=== PATIENT | female | born 1960 | race Caucasian/White ===

== ENCOUNTER 2017-10-16 13:56 | Inpatient (IN) | payer OTHER ==
[2017-10-16 15:23] VITALS: BMI 21.9
--- NOTE | 2017-10-16 19:37 | HP ---
CIWA Score - CIWA Score Nausea/Vomitin (DIARRHEA) Muscle Tremors: 3 Anxiety: 4-Mod. Anxious/Guarded Agitation: 3 Paroxysmal Sweats: No Perspiration Orientation: 0-Oriented Tacttile Disturbances: 3-Moderate Itch/Numb/Burn Auditory Disturbances: 0-None Visual Disturbances: 0-None Headache: 0-None Present CIWA-Ar Total Score: 16 Admission ROS BHS - HPI Chief Complaint: ALCOHOL WITHDRAWAL SX Allergies/Adverse Reactions: Allergies Allergy/AdvReac Type Severity Reaction Status Date / Time No Known Allergies Allergy Verified 10/16/17 17:22 History of Present Illness: 57 Y/O H/FEMALE WITH A HX OF ALCOHOL AND COCAINE DEPENDENCE SEEKING DETOX TX. PT HAS PREVIOUS HX OF TREATMENT EPISODES. Exam Limitations: No Limitations - Ebola screening Have you traveled outside of the country in the last 21 days: No (N) Have you had contact with anyone from an Ebola affected area: No Have you been sick,other than usual withdrawal symptoms: No Do you have a fever: No - Review of Systems Constitutional: Chills, Loss of Appetite, Night Sweats, Changes in sleep, Unexplained wgt Loss EENT: reports: Blurred Vision, Tearing, Nose Congestion, Dental Problems (NO TEETH) Respiratory: reports: No Symptoms reported Cardiac: reports: Lightheadedness GI: reports: Diarrhea, Nausea, Poor Appetite, Poor Fluid Intake, Vomiting : reports: No Symptoms Reported Musculoskeletal: reports: Back Pain (HX LBP), Joint Pain, Muscle Pain Integumentary: reports: No Symptoms Reported Neuro: reports: Headache, Tremors, Dizziness Endocrine: reports: No Symptoms Reported Hematology: reports: Anemia, Easy Bruising Psychiatric: reports: Orientated x3, Anxious, Depressed Other Systems: Reviewed and Negative Patient History - Patient Medical History Hx Anemia: Yes Hx Asthma: No Hx Chronic Obstructive Pulmonary Disease (COPD): No Hx Cancer: Yes (208-lymphoma s/p chemo -now in remision ) Hx Cardiac Disorders: No Hx Congestive Heart Failure: No Hx Hypertension: No Hx Hypercholesterolemia: No Hx Pacemaker: No HX Cerebrovascular Accident: No Hx Seizures: No Hx Dementia: No Hx Diabetes: No Hx Gastrointestinal Disorders: No Hx Liver Disease: No Hx Genitourinary Disorders: No Hx Sexually Transmitted Disorders: No Hx Renal Disease (ESRD): No Hx Thyroid Disease: No Hx Human Immunodeficiency Virus (HIV): Yes (ON GENVOYA BUT DID NOT BRING MED. RAN OUT.) Hx Hepatitis C: No Hx Depression: Yes Hx Suicide Attempt: No Hx Bipolar Disorder: No Hx Schizophrenia: No - Patient Surgical History Past Surgical History: Yes Hx Neurologic Surgery: No Hx Cataract Extraction: No Hx Cardiac Surgery: No Hx Lung Surgery: No Hx Breast Surgery: No Hx Breast Biopsy: No Hx Abdominal Surgery: No Hx Appendectomy: No Hx Cholecystectomy: No Hx Genitourinary Surgery: No Hx Section: No Hx Orthopedic Surgery: No Other Surgical History: Biopsy R side lymphoma chemo tx for 6 months in 2004 Anesthesia Reaction: No - PPD History Previous Implant?: Yes Documented Results: Positive w/o proof Implanted On Prior [facility] Admission?: No Results: CXR TBD PPD to be Administered?: No - Reproductive History Patient is a Female of Child Bearing Age (11 -55 yrs old): Yes Last Menstrual Period: 01/01/09 Patient : No - Smoking Cessation Smoking history: Current every day smoker Have you smoked in the past 12 months: Yes Aproximately how many cigarettes per day: 5 Cigars Per Day: 0 Hx Chewing Tobacco Use: No Initiated information on smoking cessation: Yes - Substance & Tx. History Hx Alcohol Use: Yes (VODKA/RUM) Hx Substance Use: Yes (CRACK) Substance Use Type: Alcohol, Cocaine Hx Substance Use Treatment: Yes (LAST TX [facility]) - Substances Abused Alcohol Route: Oral Frequency: Daily Amount used: 1 pint rum Age of first use: 14 Date of Last Use: 10/15/17 Crack Route: Smoking Frequency: Daily Amount used: $50 Age of first use: 22 Date of Last Use: 10/15/17 Family Disease History - Family Disease History Family Disease History: Diabetes: Father () Admission Physical Exam BHS - Vital Signs Vital Signs: Vital Signs - 24 hr 10/16/17 15:20 Temperature 99.2 F Pulse Rate 83 Respiratory 18 Rate Blood Pressure 103/67 - Physical General Appearance: Yes: Moderate Distress, Irritable, Anxious HEENTM: Yes: EOMI, Normocephalic, DAMIÁN, Pharynx Normal Respiratory: Yes: Chest Non-Tender, Lungs Clear, Normal Breath Sounds, No Respiratory Distress Neck: Yes: Supple, Trachea in good position Breast: Yes: Breast Exam Deferred Cardiology: Yes: Regular Rhythm, Regular Rate, S1, S2 Abdominal: Yes: Normal Bowel Sounds, Non Tender, Flat, Soft Genitourinary: Yes: Other (N/C) Back: Yes: Within Normal Limits Musculoskeletal: Yes: full range of Motion, Gait Steady Extremities: Yes: Normal Range of Motion, Non-Tender Neurological: Yes: national secretary II-XII NML intact, Fully Oriented, Alert, Motor Strength 5/5 Integumentary: Yes: Dry, Warm Lymphatic: Yes: Within Normal Limits - Diagnostic (1) AIDS Current Visit: Yes Status: Chronic (2) Anemia Current Visit: Yes Status: Chronic (3) Cocaine dependence Current Visit: Yes Status: Chronic Qualifiers: Substance use status: uncomplicated Qualified Code(s): F14.20 - Cocaine dependence, uncomplicated (4) Lymphoma in remission Current Visit: Yes Status: Resolved (5) Nicotine dependence Current Visit: Yes Status: Acute Qualifiers: Nicotine product type: cigarettes Substance use status: in withdrawal Qualified Code(s): F17.213 - Nicotine dependence, cigarettes, with withdrawal (6) Alcohol dependence with uncomplicated withdrawal Current Visit: Yes Status: Acute Cleared for Admission [facility] - Detox or Rehab [facility] Level of Care: Medically Managed Detox Regimen/Protocol: Librium [facility] Breath Alcohol Content Breath Alcohol Content: 0 Urine Pregancy Test - Result Urine Test Results: Negative- NO Line Present Urine Drug Screen - Results Drug Screen Negative: No Urine Drug Screen Results: KIMBERLEE-Cocaine, BZO-Benzodiazepines, TCA-Tricyclic Antidepress
[2017-10-16] MEDS ORDERED: MAG HYDROX/AL HYDROX/SIMETH 30 ML UNIT-DOSE CUP PO PRN (19:45)
[2017-10-16] MEDS ORDERED: hydrOXYzine PAMOATE 50 MG CAPSULE (FP) PO PRN (19:45)
[2017-10-16] MEDS ORDERED: MAGNESIUM CITRATE 300 ML BOTTLE PO PRN (19:45)
[2017-10-16] MEDS ORDERED: MAGNESIUM HYDROX 2400MG/30ML ORAL SUSPENSION 30 ML CUP PO PRN (19:45)
[2017-10-16] MEDS ORDERED: ACETAMINOPHEN 325 MG TABLET (FP) PO PRN (19:45)
[2017-10-16] MEDS ORDERED: P-EPHED 60MG/TRIPROLIDI 2.5MG TABLET PO PRN (19:45)
[2017-10-16] MEDS ORDERED: LOPERAMIDE HCL 2 MG CAPSULE PO PRN (19:45)
[2017-10-16] MEDS ORDERED: guaiFENesin/D-METHORPHAN HB 10 ML UNIT-DOSE CUPS PO PRN (19:45)
[2017-10-16] MEDS ORDERED: MENTHOL/PHENOL 1 EACH UD MM PRN (19:45)
[2017-10-16] MEDS ORDERED: chlordiazePOXIDE HCL 25 MG CAPSULE PO ONE (19:45)
[2017-10-16] MEDS ORDERED: chlordiazePOXIDE HCL 25 MG CAPSULE PO PRN (19:45)
[2017-10-16] MEDS ORDERED: NICOTINE POLACRILEX 2 MG GUM BC PRN (19:45)
[2017-10-16] MEDS: SULFAMETHOXAZOLE/TRIMETHOPRIM 800MG/160MG D.S. TABLET PO SCH (20:36)
[2017-10-16] MEDS: NICOTINE 14 MG/24 HOURS TOPICAL PATCH TD SCH (20:38)
[2017-10-16] MEDS: IBUPROFEN 400 MG TABLET (FP) PO PRN (20:39)
[2017-10-16] MEDS ORDERED: MELATONIN 5 MG TABLETS PO PRN (22:00)
[2017-10-16] MEDS: THIAMINE HCL 100 MG TABLET (FP) PO SCH (22:10)
[2017-10-16] MEDS: chlordiazePOXIDE HCL 25 MG CAPSULE PO SCH (22:11)
[2017-10-17] MEDS: chlordiazePOXIDE HCL 25 MG CAPSULE PO SCH ×4 (06:23→22:28)
[2017-10-17 10:12] LABS: URINE APPEARANCE SLCLOUDY; URINE BILIRUBIN NEGATIVE (<2.0 mg/dL); URINE COLOR DKYELLOW; URINE GLUCOSE (UA) NEGATIVE (NEGATIVE); URINE KETONE NEGATIVE (NEGATIVE); URINE LEUK ESTERASE 3+ (NEGATIVE); URINE NITRITE NEGATIVE (NEGATIVE); URINE PROTEIN 3+ (NEGATIVE); URINE UROBILINOGEN NEGATIVE mg/dL (0.2-1.0)
[2017-10-17 10:29] LABS: EPI CELLS RARE /HPF (FEW); URINE HYALINE CAST 25 /lpf; URINE MUCUS RARE
[2017-10-17] MEDS: SULFAMETHOXAZOLE/TRIMETHOPRIM 800MG/160MG D.S. TABLET PO SCH (10:31)
[2017-10-17] MEDS: PRENATAL VITAMINS W/ FOLIC ACID TABLET (FP) PO SCH (10:31)
[2017-10-17] MEDS: NICOTINE 14 MG/24 HOURS TOPICAL PATCH TD SCH (10:31)
--- NOTE | 2017-10-17 12:03 | EKG ---
Test Reason : Blood Pressure : / mmHG Vent. Rate : 072 BPM Atrial Rate : 072 BPM P-R Int : 174 ms QRS Dur : 082 ms QT Int : 392 ms P-R-T Axes : 063 058 043 degrees QTc Int : 429 ms NORMAL SINUS RHYTHM NORMAL ECG NO PREVIOUS ECGS AVAILABLE Confirmed by RENATO CASTILLO, EILEEN ([id number]) on 10/17/2017 12:03:27 PM Referred By: Confirmed By:EILEEN GROSS MD
--- NOTE | 2017-10-17 12:13 | PN ---
S CIWA - CIWA Score Nausea/Vomitin-Mild Nausea/No Vomiting Muscle Tremors: 4-Moderate,w/Arms Extend Anxiety: 4-Mod. Anxious/Guarded Agitation: 4-Moderately Restless Paroxysmal Sweats: 1-Minimal Palms Moist Orientation: 0-Oriented Tacttile Disturbances: 0-None Auditory Disturbances: 0-None Visual Disturbances: 0-None Headache: 0-None Present CIWA-Ar Total Score: 14 BHS Progress Note (SOAP) Subjective: sweat tremor anxiety restlessness trouble sleep at night dry skin both nares Objective: 10/17/17 12:11 Vital Signs Temperature 95.9 F L 10/17/17 10:26 Pulse Rate 62 10/17/17 10:26 Respiratory Rate 18 10/17/17 10:26 Blood Pressure 88/58 10/17/17 10:26 O2 Sat by Pulse Oximetry (%) Laboratory Last Values Urine Color Dkyellow 10/17/17 08:00 Urine Appearance Slcloudy 10/17/17 08:00 Urine pH 6.0 (5.0-8.0) 10/17/17 08:00 Ur Specific Counselor 1.018 (1.001-1.035) 10/17/17 08:00 Urine Protein 3+ (NEGATIVE) H D 10/17/17 08:00 Urine Glucose (UA) Negative (NEGATIVE) 10/17/17 08:00 Urine Ketones Negative (NEGATIVE) 10/17/17 08:00 Urine Blood 1+ (NEGATIVE) H 10/17/17 08:00 Urine Nitrite Negative (NEGATIVE) 10/17/17 08:00 Urine Bilirubin Negative (<2.0 mg/dL) 10/17/17 08:00 Urine Urobilinogen Negative mg/dL (0.2-1.0) 10/17/17 08:00 Ur Leukocyte Esterase 3+ (NEGATIVE) H 10/17/17 08:00 Urine WBC (Auto) 52 /hpf (3-5) 10/17/17 08:00 Urine RBC (Auto) 20 /hpf (0-3) 10/17/17 08:00 Ur Epithelial Cells Rare /HPF (FEW) 10/17/17 08:00 Hyaline Casts 25 /lpf 10/17/17 08:00 Urine Mucus Rare 10/17/17 08:00 lab noted repeat ua Assessment: 10/17/17 12:12 withdrawal sx Plan: continue detox bacitracin oint
[2017-10-17] MEDS ORDERED: BACITRACIN 0.9 GM PACKET TP ONE (12:30)
[2017-10-17] MEDS ORDERED: BACITRACIN 0.9 GM PACKET ONE (14:28)
--- NOTE | 2017-10-17 18:43 | CONSULT ---
[facility] Psychiatric Consult - Data Date of interview: 10/17/17 Admission source: [facility] Identifying data: Readmission to [facility] for this 54 y/o female seeeking detox treatment on for alcohol and cocaine (crack) dependence. Patient is single,unemployed,a mother of five,domiciled and supported on SSI benefits. Substance Abuse History: Confirmed by patient in this interview.Smoking history : Current every day smoker. Have you smoked in the past 12 months: Yes. Aproximately how many cigarettes per day: 5. Cigars Per Day: 0. Hx Chewing Tobacco Use: No. Initiated information on smoking cessation: Yes. - Substance & Tx. History. Hx Alcohol Use: Yes (VODKA/RUM). Hx Substance Use: Yes (CRACK) . Substance Use Type: Alcohol, Cocaine. Hx Substance Use Treatment: Yes (LAST TX AT [facility]). - Substances Abused. Alcohol. Route: Oral. Frequency : Daily. Amount used: 1 pint rum. Age of first use: 14. Date of Last Use: . Crack. Route: Smoking. Frequency: Daily. Amount used: $50. Age of first use: 22. Date of Last Use: 10/15/17 Medical History: HIV/AIDS (on antiretroviral medications) since 1999,lymphoma and anemia. Psychiatric History: No reported history of psychiatric hospitalizations.No contact with outpatient mental health providers.Ms Wade is currently prescribed trazodone (150 mg/hs) by her primary care physician.To address insomnia.Past records at [facility] indicate a history of Bipolar Disorder ( diagnosed in 1999).Patient had prior trials of seroquel and zoloft. Not taken for years as per patient.Denies suicide attempts. Physical/Sexual Abuse/Trauma History: Patient denies. Additional Comment: Urine Drug Screen Results: KIMBERLEE-Cocaine, BZO-Benzodiazepines , TCA-Tricyclic Antidepressant.Noted. Mental Status Exam - Mental Status Exam Alert and Oriented to: Time, Place, Person Cognitive Function: Good Patient Appearance: Well Groomed (thin habitus) Mood: Hopeful, Euthymic Affect: Appropriate, Normal Range Patient Behavior: Appropriate, Cooperative Speech Pattern: Clear Voice Loudness: Normal Thought Process: Intact, Goal Oriented Thought Disorder: Not Present Hallucinations: Denies Suicidal Ideation: Denies Homicidal Ideation: Denies Insight/Judgement: Poor Sleep: Poorly, Difficulty falling asleep Appetite: Fair, Weight loss Muscle strength/Tone: Normal Gait/Station: Normal Psychiatric Findings - Problem List ([place] 1, 2,3) (1) Alcohol dependence with uncomplicated withdrawal Current Visit: Yes Status: Acute (2) Cocaine dependence Current Visit: Yes Status: Acute Qualifiers: Substance use status: uncomplicated Qualified Code(s): F14.20 - Cocaine dependence, uncomplicated (3) Nicotine dependence Current Visit: Yes Status: Acute Qualifiers: Nicotine product type: cigarettes Substance use status: in withdrawal Qualified Code(s): F17.213 - Nicotine dependence, cigarettes, with withdrawal (4) Insomnia Current Visit: Yes Status: Acute - Initial Treatment Plan Initial Treatment Plan: Psychoeducation.Sleep hygiene.Detoxification.Trazodone 50 mg po hs (verified by pharmacy claims of 09/24/17 at [facility]).Side effects/benefits discussed with the patient.She agrees with this careplan.Observation.
[2017-10-17] MEDS: traZODone HCL 50 MG TABLET (FP) PO SCH (22:28)
[2017-10-17] MEDS: THIAMINE HCL 100 MG TABLET (FP) PO SCH (22:28)
[2017-10-17] MEDS: IBUPROFEN 400 MG TABLET (FP) PO PRN (22:29)
[2017-10-18] MEDS: chlordiazePOXIDE HCL 25 MG CAPSULE PO SCH ×3 (06:20→16:52)
[2017-10-18] MEDS: NICOTINE 14 MG/24 HOURS TOPICAL PATCH TD SCH (10:30)
[2017-10-18] MEDS: PRENATAL VITAMINS W/ FOLIC ACID TABLET (FP) PO SCH (10:30)
[2017-10-18] MEDS: SULFAMETHOXAZOLE/TRIMETHOPRIM 800MG/160MG D.S. TABLET PO SCH (10:30)
[2017-10-18 11:07] LABS: HEMOGLOBIN 9.9 GM/dL (10.7-15.3); MCHC 35.6 g/dl (32.0-36.0)
[2017-10-18 11:10] LABS: HEMATOCRIT 27.7 % (32.4-45.2); MCH 32.7 pg (25.7-33.7); MEAN CELL VOLUME 91.8 fl (80-96); PLATELET COUNT 118 K/MM3 (134-434); RBC 3.02 M/mm3 (3.60-5.2); RDW 14.5 % (11.6-15.6)
[2017-10-18 11:29] LABS: WHITE BLOOD COUNT 1.9 K/mm3 (4.0-10.0)
[2017-10-18] MEDS ORDERED: NICOTINE 14 MG/24 HOURS TOPICAL PATCH TD PRN (11:58)
--- NOTE | 2017-10-18 12:05 | PN ---
[facility] CIWA - CIWA Score Nausea/Vomitin-Mild Nausea/No Vomiting Muscle Tremors: 3 Anxiety: 3 Agitation: 3 Paroxysmal Sweats: 1-Minimal Palms Moist Orientation: 0-Oriented Tacttile Disturbances: 1-Very Mild Itch/Numbness Auditory Disturbances: 0-None Visual Disturbances: 0-None Headache: 0-None Present CIWA-Ar Total Score: 12 BHS Progress Note (SOAP) Subjective: sweat tremor anxiety restlessness history of lymphoma remission period managed by primary care provider last visit 09/2017 Objective: 10/18/17 12:03 Vital Signs Temperature 97.0 F L 10/18/17 10:27 Pulse Rate 72 10/18/17 10:27 Respiratory Rate 18 10/18/17 10:27 Blood Pressure 95/58 10/18/17 10:27 O2 Sat by Pulse Oximetry (%) Laboratory Last Values WBC 1.9 K/mm3 (4.0-10.0) L* 10/18/17 07:00 RBC 3.02 M/mm3 (3.60-5.2) L 10/18/17 07:00 Hgb 9.9 GM/dL (10.7-15.3) L 10/18/17 07:00 Hct 27.7 % (32.4-45.2) L D 10/18/17 07:00 MCV 91.8 fl (80-96) 10/18/17 07:00 MCH 32.7 pg (25.7-33.7) 10/18/17 07:00 MCHC 35.6 g/dl (32.0-36.0) 10/18/17 07:00 RDW 14.5 % (11.6-15.6) 10/18/17 07:00 Plt Count 118 K/MM3 (134-434) L D 10/18/17 07:00 MPV 9.0 fl (7.5-11.1) 10/18/17 07:00 Urine Color Dkyellow 10/17/17 08:00 Urine Appearance Slcloudy 10/17/17 08:00 Urine pH 6.0 (5.0-8.0) 10/17/17 08:00 Ur Specific [place] 1.018 (1.001-1.035) 10/17/17 08:00 Urine Protein 3+ (NEGATIVE) H D 10/17/17 08:00 Urine Glucose (UA) Negative (NEGATIVE) 10/17/17 08:00 Urine Ketones Negative (NEGATIVE) 10/17/17 08:00 Urine Blood 1+ (NEGATIVE) H 10/17/17 08:00 Urine Nitrite Negative (NEGATIVE) 10/17/17 08:00 Urine Bilirubin Negative (<2.0 mg/dL) 10/17/17 08:00 Urine Urobilinogen Negative mg/dL (0.2-1.0) 10/17/17 08:00 Ur Leukocyte Esterase 3+ (NEGATIVE) H 10/17/17 08:00 Urine WBC (Auto) 52 /hpf (3-5) 10/17/17 08:00 Urine RBC (Auto) 20 /hpf (0-3) 10/17/17 08:00 Ur Epithelial Cells Rare /HPF (FEW) 10/17/17 08:00 Hyaline Casts 25 /lpf 10/17/17 08:00 Urine Mucus Rare 10/17/17 08:00 lab noted repeat ua pending wbc 1.9 repeat cbc Assessment: 10/18/17 12:04 withdrawal sx lymphoma hiv Plan: continue detox encourage the patient to bring in HIV medication that she wants [facility] repeat cbc repeat ua result pending
[2017-10-18 12:09] LABS: CHLORIDE 114 mmol/L (98-107); POTASSIUM 3.2 mmol/L (3.5-5.1); SODIUM 146 mmol/L (136-145)
--- NOTE | 2017-10-18 12:13 | PN ---
REGI Progress Note Note: hiv medication discussed with the patient that community pharmacy will deliver the medication to [facility]
[2017-10-18 12:32] LABS: ALBUMIN 2.6 g/dl (3.4-5.0); ALK PHOS 74 U/L (45-117); ANION GAP 10 (8-16); BILIRUBIN,TOTAL 0.1 mg/dL (0.2-1.0); BLOOD UREA NITROGEN 27 mg/dL (7-18); CALCIUM 9.4 mg/dL (8.5-10.1); CO2 22 mmol/L (21-32); CREATININE 1.3 mg/dL (0.55-1.02); GLUCOSE,RANDOM 104 mg/dL (74-106); SGOT/AST 26 U/L (15-37); SGPT/ALT 17 U/L (12-78); TOT PROT 7.4 g/dl (6.4-8.2)
[2017-10-18] MEDS: POTASSIUM CHLORIDE ORAL LIQUID 20 MEQ/15 ML PO SCH ×2 (16:50→22:15)
[2017-10-18] MEDS: HYDROCORTISONE 1% TOPICAL CREAM 30 GM TUBE TP SCH ×2 (17:20→22:40)
[2017-10-18] MEDS: chlordiazePOXIDE 5 MG CAPSULE PO SCH (22:15)
[2017-10-18] MEDS: THIAMINE HCL 100 MG TABLET (FP) PO SCH (22:15)
[2017-10-18] MEDS: traZODone HCL 50 MG TABLET (FP) PO SCH (22:15)
[2017-10-18] MEDS: IBUPROFEN 400 MG TABLET (FP) PO PRN (22:15)
[2017-10-19 03:30] LABS: URINE APPEARANCE SLCLOUDY; URINE BILIRUBIN NEGATIVE (<2.0 mg/dL); URINE COLOR YELLOW; URINE GLUCOSE (UA) NEGATIVE (NEGATIVE); URINE KETONE NEGATIVE (NEGATIVE); URINE LEUK ESTERASE NEGATIVE (NEGATIVE); URINE NITRITE NEGATIVE (NEGATIVE); URINE PROTEIN NEGATIVE (NEGATIVE); URINE UROBILINOGEN NEGATIVE mg/dL (0.2-1.0)
[2017-10-19] MEDS: chlordiazePOXIDE 5 MG CAPSULE PO SCH ×2 (05:55→10:07)
[2017-10-19 06:20] VITALS: PULSE 69
[2017-10-19 09:35] LABS: HEMATOCRIT 28.1 % (32.4-45.2); HEMOGLOBIN 9.7 GM/dL (10.7-15.3); MCH 31.7 pg (25.7-33.7); MCHC 34.4 g/dl (32.0-36.0); MEAN CELL VOLUME 92.1 fl (80-96); MEAN PLT VOLUME 9.1 fl (7.5-11.1); PLATELET COUNT 124 K/MM3 (134-434); RBC 3.05 M/mm3 (3.60-5.2); RDW 14.7 % (11.6-15.6)
[2017-10-19 09:54] VITALS: BP 93/58; TEMP 98.1
[2017-10-19] MEDS: SULFAMETHOXAZOLE/TRIMETHOPRIM 800MG/160MG D.S. TABLET PO SCH (10:07)
[2017-10-19] MEDS: PRENATAL VITAMINS W/ FOLIC ACID TABLET (FP) PO SCH (10:07)
[2017-10-19] MEDS: POTASSIUM CHLORIDE ORAL LIQUID 20 MEQ/15 ML PO SCH (10:07)
[2017-10-19] MEDS: HYDROCORTISONE 1% TOPICAL CREAM 30 GM TUBE TP SCH (10:08)
[2017-10-19] MEDS ORDERED: POTASSIUM CHLORIDE ORAL LIQUID 20 MEQ/15 ML PO SCH (10:18)
--- NOTE | 2017-10-19 10:38 | DS ---
[facility] Detox Discharge Summary Admission Date: 10/16/17 Discharge Date: 10/19/17 - History Present History: Alcohol Dependence Additional Comments: 57 years old female admitted on 10/16/17 for alcohol withdrawal sx no tremor no sweat slept through the night alert oriented x 3 K+ 3.2 treated with K+ supplement 4.0 K+ serum level 10/19/17 discontinue K+ supplement HIV treated with genvoys case discussed with patient's pharmacist that on the ART medication will be delivered to rehab and the patient agrees to continue ART wbc 1.9 history of lymphoma patient agrees to follow up with her primary care physician after 2 weeks of rehab - Physical Exam Results Vital Signs: Vital Signs Temperature 98.1 F 10/19/17 09:53 Pulse Rate 69 10/19/17 09:53 Respiratory Rate 18 10/19/17 09:53 Blood Pressure 93/58 10/19/17 09:53 O2 Sat by Pulse Oximetry (%) Laboratory Last Values WBC 1.9 K/mm3 (4.0-10.0) L* 10/18/17 07:00 RBC 3.02 M/mm3 (3.60-5.2) L 10/18/17 07:00 Hgb 9.9 GM/dL (10.7-15.3) L 10/18/17 07:00 Hct 27.7 % (32.4-45.2) L D 10/18/17 07:00 MCV 91.8 fl (80-96) 10/18/17 07:00 MCH 32.7 pg (25.7-33.7) 10/18/17 07:00 MCHC 35.6 g/dl (32.0-36.0) 10/18/17 07:00 RDW 14.5 % (11.6-15.6) 10/18/17 07:00 Plt Count 118 K/MM3 (134-434) L D 10/18/17 07:00 MPV 9.0 fl (7.5-11.1) 10/18/17 07:00 Sodium 146 mmol/L (136-145) H 10/18/17 07:00 Potassium 4.0 mmol/L (3.5-5.1) 10/19/17 07:00 Chloride 114 mmol/L (98-107) H 10/18/17 07:00 Carbon Dioxide 22 mmol/L (21-32) 10/18/17 07:00 Anion Gap 10 (8-16) 10/18/17 07:00 BUN 27 mg/dL (7-18) H 10/18/17 07:00 Creatinine 1.3 mg/dL (0.55-1.02) H 10/18/17 07:00 Creat Clearance w eGFR 42.37 (>60) 10/18/17 07:00 Random Glucose 104 mg/dL (74-106) 10/18/17 07:00 Calcium 9.4 mg/dL (8.5-10.1) 10/18/17 07:00 Total Bilirubin 0.1 mg/dL (0.2-1.0) L D 10/18/17 07:00 AST 26 U/L (15-37) 10/18/17 07:00 ALT 17 U/L (12-78) 10/18/17 07:00 Alkaline Phosphatase 74 U/L (45-117) 10/18/17 07:00 Total Protein 7.4 g/dl (6.4-8.2) 10/18/17 07:00 Albumin 2.6 g/dl (3.4-5.0) L 10/18/17 07:00 Urine Color Yellow 10/18/17 15:10 Urine Appearance Slcloudy 10/18/17 15:10 Urine pH 7.0 (5.0-8.0) 10/18/17 15:10 Ur Specific [place] 1.010 (1.001-1.035) 10/18/17 15:10 Urine Protein Negative (NEGATIVE) 10/18/17 15:10 Urine Glucose (UA) Negative (NEGATIVE) 10/18/17 15:10 Urine Ketones Negative (NEGATIVE) 10/18/17 15:10 Urine Blood Negative (NEGATIVE) 10/18/17 15:10 Urine Nitrite Negative (NEGATIVE) 10/18/17 15:10 Urine Bilirubin Negative (<2.0 mg/dL) 10/18/17 15:10 Urine Urobilinogen Negative mg/dL (0.2-1.0) 10/18/17 15:10 Ur Leukocyte Esterase Negative (NEGATIVE) 10/18/17 15:10 Urine WBC (Auto) 52 /hpf (3-5) 10/17/17 08:00 Urine RBC (Auto) 20 /hpf (0-3) 10/17/17 08:00 Ur Epithelial Cells Rare /HPF (FEW) 10/17/17 08:00 Hyaline Casts 25 /lpf 10/17/17 08:00 Urine Mucus Rare 10/17/17 08:00 RPR Titer Nonreactive (NONREACTIVE) 10/18/17 07:00 lab noted Pertinent Admission Physical Exam Findings: withdrawal sx Vital Signs Temperature 98.1 F 10/19/17 09:53 Pulse Rate 69 10/19/17 09:53 Respiratory Rate 18 10/19/17 09:53 Blood Pressure 93/58 10/19/17 09:53 O2 Sat by Pulse Oximetry (%) Laboratory Last Values WBC 1.9 K/mm3 (4.0-10.0) L* 10/18/17 07:00 RBC 3.02 M/mm3 (3.60-5.2) L 10/18/17 07:00 Hgb 9.9 GM/dL (10.7-15.3) L 10/18/17 07:00 Hct 27.7 % (32.4-45.2) L D 10/18/17 07:00 MCV 91.8 fl (80-96) 10/18/17 07:00 MCH 32.7 pg (25.7-33.7) 10/18/17 07:00 MCHC 35.6 g/dl (32.0-36.0) 10/18/17 07:00 RDW 14.5 % (11.6-15.6) 10/18/17 07:00 Plt Count 118 K/MM3 (134-434) L D 10/18/17 07:00 MPV 9.0 fl (7.5-11.1) 10/18/17 07:00 Sodium 146 mmol/L (136-145) H 10/18/17 07:00 Potassium 4.0 mmol/L (3.5-5.1) 10/19/17 07:00 Chloride 114 mmol/L (98-107) H 10/18/17 07:00 Carbon Dioxide 22 mmol/L (21-32) 10/18/17 07:00 Anion Gap 10 (8-16) 10/18/17 07:00 BUN 27 mg/dL (7-18) H 10/18/17 07:00 Creatinine 1.3 mg/dL (0.55-1.02) H 10/18/17 07:00 Creat Clearance w eGFR 42.37 (>60) 10/18/17 07:00 Random Glucose 104 mg/dL (74-106) 10/18/17 07:00 Calcium 9.4 mg/dL (8.5-10.1) 10/18/17 07:00 Total Bilirubin 0.1 mg/dL (0.2-1.0) L D 10/18/17 07:00 AST 26 U/L (15-37) 10/18/17 07:00 ALT 17 U/L (12-78) 10/18/17 07:00 Alkaline Phosphatase 74 U/L (45-117) 10/18/17 07:00 Total Protein 7.4 g/dl (6.4-8.2) 10/18/17 07:00 Albumin 2.6 g/dl (3.4-5.0) L 10/18/17 07:00 Urine Color Yellow 10/18/17 15:10 Urine Appearance Slcloudy 10/18/17 15:10 Urine pH 7.0 (5.0-8.0) 10/18/17 15:10 Ur Specific [place] 1.010 (1.001-1.035) 10/18/17 15:10 Urine Protein Negative (NEGATIVE) 10/18/17 15:10 Urine Glucose (UA) Negative (NEGATIVE) 10/18/17 15:10 Urine Ketones Negative (NEGATIVE) 10/18/17 15:10 Urine Blood Negative (NEGATIVE) 10/18/17 15:10 Urine Nitrite Negative (NEGATIVE) 10/18/17 15:10 Urine Bilirubin Negative (<2.0 mg/dL) 10/18/17 15:10 Urine Urobilinogen Negative mg/dL (0.2-1.0) 10/18/17 15:10 Ur Leukocyte Esterase Negative (NEGATIVE) 10/18/17 15:10 Urine WBC (Auto) 52 /hpf (3-5) 10/17/17 08:00 Urine RBC (Auto) 20 /hpf (0-3) 10/17/17 08:00 Ur Epithelial Cells Rare /HPF (FEW) 10/17/17 08:00 Hyaline Casts 25 /lpf 10/17/17 08:00 Urine Mucus Rare 10/17/17 08:00 RPR Titer Nonreactive (NONREACTIVE) 10/18/17 07:00 lab noted - Treatment Hospital Course: Detox Protocol Followed, Detoxed Safely, Responded well, Discharged Condition Good, Rehab Referral Accepted Patient has Accepted a Rehab Referral to: [facility] - Medication Discharge Medications: Ambulatory Orders Elviteg/Cob/Emtri/Tenof Alafen [Genvoya Tablet] 1 each PO DAILY 10/16/17 Sulfamethoxazole/Trimethoprim [Bactrim DS -] 1 tab PO DAILY 10/16/17 Trazodone HCl 50 mg PO HS 10/16/17 - Diagnosis (1) HIV (human immunodeficiency virus infection) Current Visit: Yes Status: Chronic (2) Alcohol dependence with uncomplicated withdrawal Current Visit: Yes Status: Acute (3) Nicotine dependence Current Visit: Yes Status: Acute Qualifiers: Nicotine product type: cigarettes Substance use status: in withdrawal Qualified Code(s): F17.213 - Nicotine dependence, cigarettes, with withdrawal - AMA Did Patient Leave Against Medical Advice: No
[2017-10-19 11:37] LABS: WHITE BLOOD COUNT 1.9 K/mm3 (4.0-10.0)
[2017-10-19] MEDS ORDERED: chlordiazePOXIDE HCL 10 MG CAPSULE PO SCH (23:00)
== END 2017-10-19 11:24 | disposition other institution (70) | DRG 774 ==
LOC: YASAS 13:56 → Y6N 18:07
PROVIDERS: ADMIT Surgery; ATTEND Surgery
PROC: HZ2ZZZZ Detoxification Services for Substance Abuse Treatment (ICD-10-PCS; principal; 2017-10-16)
DX: F10.230 Alcohol dependence with withdrawal, uncomplicated (principal); F14.20 Cocaine dependence, uncomplicated; F17.210 Nicotine dependence, cigarettes, uncomplicated; F32.9 Major depressive disorder, single episode, unspecified; Z21 Asymptomatic human immunodeficiency virus [HIV] infection status; G47.00 Insomnia, unspecified; Z85.72 Personal history of non-Hodgkin lymphomas
CPT/HCPCS: 36415; 71046-TC-FY; 80053; 81003; 81015; 84132; 85027; 86593; 93005; 93010

== ENCOUNTER 2017-10-19 11:19 | Inpatient (IN) | payer OTHER ==
--- NOTE | 2017-10-19 10:51 | HP ---
REGI CASTILLO Rehab Assess/Revision - Admission History Admitted to Rehab from: [facility] Date of Admission to Rehab: 10/19/17 - Findings Detox History & Physical reviewed: Yes Concur with findings: Yes Comments/Additional Findings: transferred from detox to rehab admission as per protocol Inpatient Rehab Admission - Initial Determination Are CD services needed?: No Free of communicable disease: No Not in need of hospitalization: No - Rehab Admission Criteria Previous failed treatment: Yes Poor recovery environment: Yes Comorbidities: Yes Lacks judgement: No Patient is meeting Inpatient Rehab admission criteria:: Yes
[~2017-10-19 11:19] MED LIST: ACETAMINOPHEN 325 MG TABLET (FP) PO PRN; LOPERAMIDE HCL 2 MG CAPSULE PO PRN; MAGNESIUM CITRATE 300 ML BOTTLE PO PRN; MAGNESIUM HYDROX 2400MG/30ML ORAL SUSPENSION 30 ML CUP PO PRN; NICOTINE 14 MG/24 HOURS TOPICAL PATCH TD PRN; NICOTINE POLACRILEX 2 MG GUM BUC PRN; P-EPHED 60MG/TRIPROLIDI 2.5MG TABLET PO PRN; guaiFENesin/D-METHORPHAN HB 10 ML UNIT-DOSE CUPS PO PRN
--- NOTE | 2017-10-19 14:09 | HP ---
Psychiatrist Admission - Data Date of interview: 10/19/17 Admission source: [address] [place] [address] Identifying data: This is the second admission to [address] [place] [address] for this 57 years olkd female mother of 5,domiciled,supported by [facility]. Medical History: Significant for HIV+,AIDS,Aneima. Psychiatric History: Patient is poor historian.Reports one suicidal atempt many years back.No history psychiatric hospitalizations.Reports being dx with Depresive disorder,Bipolar disorder(?).Patient was on Zoloft,Seroquel, Trazodone.No psychiatric outpatient follow up.Patient obtains Trazodone from her PCP to address insomnia. Physical/Sexual Abuse/Trauma History: dnies Vital Signs: Vital Signs - 24 hr 10/19/17 11:52 Temperature 96 F L Pulse Rate 69 Respiratory 18 Rate Blood Pressure 100/67 Allergies/Adverse Reactions: Allergies Allergy/AdvReac Type Severity Reaction Status Date / Time No Known Allergies Allergy Verified 10/16/17 17:22 Date of last physical exam: 10/16/17 Concur with the findings of this exam: Yes - Substance Abuse/Tx History Hx Alcohol Use: Yes (drinking since 14 yo,Rum 1 pint daily) Hx Substance Use: Yes (reorts using crack/cocaine since 22,$100 daily) Substance Use Type: Alcohol, Cocaine Hx Substance Use Treatment: Yes (completed this program in Jan 2014) Mental Status Exam - Mental Status Exam Alert and Oriented to: Time, Place, Person Cognitive Function: Grossly Intact Patient Appearance: Well Groomed Mood: Euthymic Affect: Mood Congruent Patient Behavior: Cooperative Speech Pattern: Clear Voice Loudness: Normal Thought Process: Goal Oriented Thought Disorder: Not Present Hallucinations: Denies Suicidal Ideation: Denies Homicidal Ideation: Denies Insight/Judgement: Fair Sleep: Fair Appetite: Fair Muscle strength/Tone: Normal Gait/Station: Normal Psychiatric Findings - Problem List ([place] 1, 2,3) (1) Cocaine dependence Current Visit: Yes Status: Chronic Qualifiers: Substance use status: uncomplicated Qualified Code(s): F14.20 - Cocaine dependence, uncomplicated (2) Nicotine dependence Current Visit: Yes Status: Chronic Qualifiers: Nicotine product type: cigarettes Substance use status: in withdrawal Qualified Code(s): F17.213 - Nicotine dependence, cigarettes, with withdrawal (3) AIDS Current Visit: Yes Status: Chronic (4) Alcohol dependence Current Visit: Yes Status: Chronic (5) Alcohol-induced mood disorder Current Visit: Yes Status: Chronic (6) Anemia Current Visit: Yes Status: Chronic (7) Substance induced mood disorder Current Visit: Yes Status: Chronic (8) HIV (human immunodeficiency virus infection) Current Visit: Yes Status: Chronic (9) Stasis dermatitis of both legs Current Visit: Yes Status: Chronic (10) Lymphoma in remission Current Visit: Yes Status: Resolved - Initial Treatment Plan Initial Treatment Plan: Trazodone 50 mg po hs.Will monitor progress.
--- NOTE | 2017-10-19 20:05 | PN ---
S Progress Note Note: As per nursing report patient has bee on Trazodone 50mg po qhs prior to admission Trazodone 50mg po qhs ordered.
[2017-10-19] MEDS: traZODone HCL 50 MG TABLET (FP) PO SCH (21:33)
[2017-10-19] MEDS: THIAMINE HCL 100 MG TABLET (FP) PO SCH (21:33)
[2017-10-19] MEDS ORDERED: MELATONIN 5 MG TABLETS PO PRN (22:00)
[2017-10-20] MEDS: PRENATAL VITAMINS W/ FOLIC ACID TABLET (FP) PO SCH (09:27)
--- NOTE | 2017-10-20 11:54 | PN ---
[facility] Progress Note Note: Hydrocortisone ointment ordered for rash to face
[2017-10-20] MEDS: HYDROCORTISONE 0.5% TOPICAL OINTMENT TUBE TP PRN (15:05)
[2017-10-20] MEDS ORDERED: PT OWN MED DRAWER 7, Y5N ONE ×2 (15:44→16:36)
[2017-10-20] MEDS: IBUPROFEN 400 MG TABLET (FP) PO PRN (16:38)
[2017-10-20] MEDS: THIAMINE HCL 100 MG TABLET (FP) PO SCH (21:43)
[2017-10-20] MEDS: traZODone HCL 50 MG TABLET (FP) PO SCH (21:43)
[2017-10-21] MEDS: PRENATAL VITAMINS W/ FOLIC ACID TABLET (FP) PO SCH (09:05)
[2017-10-21] MEDS: IBUPROFEN 400 MG TABLET (FP) PO PRN (16:56)
[2017-10-21] MEDS: diphenhydrAMINE HCL 25 MG CAPSULE (FP) PO PRN (21:20)
[2017-10-21] MEDS: traZODone HCL 50 MG TABLET (FP) PO SCH (21:20)
[2017-10-21] MEDS: THIAMINE HCL 100 MG TABLET (FP) PO SCH (21:20)
[2017-10-22] MEDS: PRENATAL VITAMINS W/ FOLIC ACID TABLET (FP) PO SCH (10:17)
[2017-10-22] MEDS ORDERED: PT OWN MED DRAWER 7, Y5N ONE ×3 (10:19→16:52)
[2017-10-22] MEDS: HYDROCORTISONE 0.5% TOPICAL OINTMENT TUBE TP PRN (10:19)
[2017-10-22] MEDS: IBUPROFEN 400 MG TABLET (FP) PO PRN (10:19)
[2017-10-22] MEDS ORDERED: COLLOIDAL OATMEAL 1 BAR EACH TP PRN (12:44)
--- NOTE | 2017-10-22 12:50 | PN ---
S Progress Note Note: PATIENT C/O REDNESS TO FACE. IS CURRENTLY ON HYDROCORTISONE OINTMENT PRN. WILL CHANGE TO DAILY AND ADD AVEENO SOAP. FACIAL SKIN WITH REDNESS TO CHEEKS AND NOSE. NO OPEN AREAS. WILL CONTINUE TO MONITOR CLINICALLY.
[2017-10-22] MEDS: SULFAMETHOXAZOLE/TRIMETHOPRIM 800MG/160MG D.S. TABLET PO SCH (17:32)
[2017-10-22] MEDS: ELVITEG/COB/EMTRI/TENOF (GENVOYA) TABLET (NF) PO SCH (17:32)
[2017-10-22] MEDS: hydrOXYzine PAMOATE 50 MG CAPSULE (FP) PO PRN (21:18)
[2017-10-22] MEDS: THIAMINE HCL 100 MG TABLET (FP) PO SCH (21:18)
[2017-10-22] MEDS: MELATONIN 5 MG TABLETS PO SCH (21:18)
[2017-10-22] MEDS: diphenhydrAMINE HCL 25 MG CAPSULE (FP) PO PRN (21:19)
[2017-10-23] MEDS: ELVITEG/COB/EMTRI/TENOF (GENVOYA) TABLET (NF) PO SCH (09:58)
[2017-10-23] MEDS: PRENATAL VITAMINS W/ FOLIC ACID TABLET (FP) PO SCH (09:59)
[2017-10-23] MEDS: SULFAMETHOXAZOLE/TRIMETHOPRIM 800MG/160MG D.S. TABLET PO SCH (09:59)
[2017-10-23] MEDS: HYDROCORTISONE 0.5% TOPICAL OINTMENT TUBE TP SCH (09:59)
[2017-10-23] MEDS ORDERED: SULFAMETHOXAZOLE PO SCH (10:00)
[2017-10-23] MEDS ORDERED: [UNRECOGNIZED DRUG - OTHER] PO SCH (10:00)
[2017-10-23] MEDS: MAG HYDROX/AL HYDROX/SIMETH 30 ML UNIT-DOSE CUP PO PRN (12:50)
[2017-10-23] MEDS: IBUPROFEN 400 MG TABLET (FP) PO PRN (19:16)
[2017-10-23] MEDS: THIAMINE HCL 100 MG TABLET (FP) PO SCH (21:23)
[2017-10-23] MEDS: MELATONIN 5 MG TABLETS PO SCH (21:23)
[2017-10-23] MEDS: diphenhydrAMINE HCL 25 MG CAPSULE (FP) PO PRN (21:25)
[2017-10-24] MEDS ORDERED: PT OWN MED DRAWER 7, Y5N ONE (09:06)
[2017-10-24] MEDS: ELVITEG/COB/EMTRI/TENOF (GENVOYA) TABLET (NF) PO SCH (10:14)
[2017-10-24] MEDS: PRENATAL VITAMINS W/ FOLIC ACID TABLET (FP) PO SCH (10:15)
[2017-10-24] MEDS: SULFAMETHOXAZOLE/TRIMETHOPRIM 800MG/160MG D.S. TABLET PO SCH (10:15)
[2017-10-24] MEDS: HYDROCORTISONE 0.5% TOPICAL OINTMENT TUBE TP SCH (10:16)
[2017-10-24] MEDS: IBUPROFEN 400 MG TABLET (FP) PO PRN (11:46)
[2017-10-24] MEDS: diphenhydrAMINE HCL 25 MG CAPSULE (FP) PO PRN (17:56)
[2017-10-24] MEDS: HYDROCORTISONE 0.5% TOPICAL CREAM 30 GM TUBE TP PRN (21:27)
[2017-10-24] MEDS: traZODone HCL 50 MG TABLET (FP) PO SCH (21:28)
[2017-10-24] MEDS: THIAMINE HCL 100 MG TABLET (FP) PO SCH (21:28)
[2017-10-24] MEDS: MELATONIN 5 MG TABLETS PO SCH (21:28)
[2017-10-25] MEDS: PRENATAL VITAMINS W/ FOLIC ACID TABLET (FP) PO SCH (10:09)
[2017-10-25] MEDS: SULFAMETHOXAZOLE/TRIMETHOPRIM 800MG/160MG D.S. TABLET PO SCH (10:09)
[2017-10-25] MEDS: ELVITEG/COB/EMTRI/TENOF (GENVOYA) TABLET (NF) PO SCH (10:10)
--- NOTE | 2017-10-25 14:41 | PN ---
[facility] Progress Note Note: c/o of vaginal itch and discharge. Vital Signs Temperature 97.5 F L 10/25/17 06:53 Pulse Rate 64 10/25/17 06:53 Respiratory Rate 18 10/25/17 06:53 Blood Pressure 95/62 10/25/17 06:53 O2 Sat by Pulse Oximetry (%) - vaginal yeast inf - low WBC last lab test - repeat CBC and CMP - clotrimazole VG cream x 3 days - increase fluids continue to monitor
[2017-10-25] MEDS ORDERED: PT OWN MED DRAWER 7, Y5N ONE (16:01)
[2017-10-25] MEDS: THIAMINE HCL 100 MG TABLET (FP) PO SCH (21:23)
[2017-10-25] MEDS: traZODone HCL 50 MG TABLET (FP) PO SCH (21:23)
[2017-10-25] MEDS: MELATONIN 5 MG TABLETS PO SCH (21:23)
[2017-10-25] MEDS: CLOTRIMAZOLE 1% VAGINAL CREAM WITH APPLICATOR 45 GM TUBE VG SCH (21:24)
[2017-10-25] MEDS: diphenhydrAMINE HCL 25 MG CAPSULE (FP) PO PRN (21:25)
[2017-10-26] MEDS: PRENATAL VITAMINS W/ FOLIC ACID TABLET (FP) PO SCH (09:58)
[2017-10-26] MEDS: SULFAMETHOXAZOLE/TRIMETHOPRIM 800MG/160MG D.S. TABLET PO SCH (09:58)
[2017-10-26] MEDS: ELVITEG/COB/EMTRI/TENOF (GENVOYA) TABLET (NF) PO SCH (09:59)
[2017-10-26 10:05] LABS: BASO % 0.8 % (0-2.0); EOS % 4.4 % (0-4.5); HEMATOCRIT 29.2 % (32.4-45.2); HEMOGLOBIN 9.9 GM/dL (10.7-15.3); LYMPH % 26.8 % (8-40); MCH 31.4 pg (25.7-33.7); MCHC 34.1 g/dl (32.0-36.0); MEAN CELL VOLUME 92.2 fl (80-96); MEAN PLT VOLUME 9.5 fl (7.5-11.1); MONO % 10.4 % (3.8-10.2); NEUT % 57.6 % (42.8-82.8); PLATELET COUNT 106 K/MM3 (134-434); RBC 3.17 M/mm3 (3.60-5.2); RDW 14.7 % (11.6-15.6); WHITE BLOOD COUNT 2.6 K/mm3 (4.0-10.0)
[2017-10-26 10:29] LABS: CHLORIDE 112 mmol/L (98-107); POTASSIUM 4.6 mmol/L (3.5-5.1); SODIUM 143 mmol/L (136-145)
[2017-10-26 11:04] LABS: ALBUMIN 2.9 g/dl (3.4-5.0); ALK PHOS 72 U/L (45-117); ANION GAP 8 (8-16); BILIRUBIN,TOTAL 0.2 mg/dL (0.2-1.0); BLOOD UREA NITROGEN 35 mg/dL (7-18); CO2 23 mmol/L (21-32); CREATININE 1.2 mg/dL (0.55-1.02); GLUCOSE,RANDOM 125 mg/dL (74-106); SGOT/AST 27 U/L (15-37); SGPT/ALT 25 U/L (12-78)
[2017-10-26] MEDS: CLOTRIMAZOLE 1% VAGINAL CREAM WITH APPLICATOR 45 GM TUBE VG SCH (21:24)
[2017-10-26] MEDS: traZODone HCL 50 MG TABLET (FP) PO SCH (21:24)
[2017-10-26] MEDS: diphenhydrAMINE HCL 25 MG CAPSULE (FP) PO PRN (21:24)
[2017-10-26] MEDS: MELATONIN 5 MG TABLETS PO SCH (21:24)
[2017-10-26] MEDS: THIAMINE HCL 100 MG TABLET (FP) PO SCH (21:24)
[2017-10-26] MEDS: IBUPROFEN 400 MG TABLET (FP) PO PRN (21:25)
[2017-10-27] MEDS ORDERED: PT OWN MED DRAWER 7, Y5N ONE ×2 (08:57→21:43)
[2017-10-27] MEDS: PRENATAL VITAMINS W/ FOLIC ACID TABLET (FP) PO SCH (09:32)
[2017-10-27] MEDS: ELVITEG/COB/EMTRI/TENOF (GENVOYA) TABLET (NF) PO SCH (09:32)
[2017-10-27] MEDS: SULFAMETHOXAZOLE/TRIMETHOPRIM 800MG/160MG D.S. TABLET PO SCH (09:32)
[2017-10-27] MEDS: HYDROCORTISONE 0.5% TOPICAL CREAM 30 GM TUBE TP PRN (09:33)
[2017-10-27] MEDS: MENTHOL/PHENOL 1 EACH UD MM PRN ×3 (09:33→21:45)
[2017-10-27 12:44] LABS: ALBUMIN 2.9 g/dl (3.4-5.0); ALK PHOS 78 U/L (45-117); ANION GAP 9 (8-16); BILIRUBIN,TOTAL 0.1 mg/dL (0.2-1.0); BLOOD UREA NITROGEN 34 mg/dL (7-18); CALCIUM 8.9 mg/dL (8.5-10.1); CHLORIDE 109 mmol/L (98-107); CO2 25 mmol/L (21-32); CREATININE 1.3 mg/dL (0.55-1.02); GLUCOSE,RANDOM 123 mg/dL (74-106); POTASSIUM 4.3 mmol/L (3.5-5.1); SGOT/AST 23 U/L (15-37); SGPT/ALT 26 U/L (12-78); SODIUM 143 mmol/L (136-145)
[2017-10-27] MEDS: MELATONIN 5 MG TABLETS PO SCH (21:40)
[2017-10-27] MEDS: THIAMINE HCL 100 MG TABLET (FP) PO SCH (21:40)
[2017-10-27] MEDS: traZODone HCL 50 MG TABLET (FP) PO SCH (21:40)
[2017-10-27] MEDS: CLOTRIMAZOLE 1% VAGINAL CREAM WITH APPLICATOR 45 GM TUBE VG SCH (21:42)
[2017-10-27] MEDS: diphenhydrAMINE HCL 25 MG CAPSULE (FP) PO PRN (21:44)
[2017-10-28] MEDS: PRENATAL VITAMINS W/ FOLIC ACID TABLET (FP) PO SCH (09:57)
[2017-10-28] MEDS: SULFAMETHOXAZOLE/TRIMETHOPRIM 800MG/160MG D.S. TABLET PO SCH (09:57)
[2017-10-28] MEDS: ELVITEG/COB/EMTRI/TENOF (GENVOYA) TABLET (NF) PO SCH (09:57)
[2017-10-28] MEDS: MENTHOL/PHENOL 1 EACH UD MM PRN ×2 (09:59→21:22)
[2017-10-28] MEDS: traZODone HCL 50 MG TABLET (FP) PO SCH (21:20)
[2017-10-28] MEDS: diphenhydrAMINE HCL 25 MG CAPSULE (FP) PO PRN (21:21)
[2017-10-28] MEDS: THIAMINE HCL 100 MG TABLET (FP) PO SCH (21:21)
[2017-10-28] MEDS: MELATONIN 5 MG TABLETS PO SCH (21:21)
[2017-10-29] MEDS ORDERED: PT OWN MED DRAWER 7, Y5N ONE ×2 (08:19→19:46)
[2017-10-29] MEDS: SULFAMETHOXAZOLE/TRIMETHOPRIM 800MG/160MG D.S. TABLET PO SCH (10:02)
[2017-10-29] MEDS: MENTHOL/PHENOL 1 EACH UD MM PRN ×2 (10:03→19:27)
[2017-10-29] MEDS: PRENATAL VITAMINS W/ FOLIC ACID TABLET (FP) PO SCH (10:03)
[2017-10-29] MEDS: ELVITEG/COB/EMTRI/TENOF (GENVOYA) TABLET (NF) PO SCH (10:03)
[2017-10-29 12:09] LABS: BASO % 0.7 % (0-2.0); EOS % 1.7 % (0-4.5); HEMATOCRIT 31.3 % (32.4-45.2); HEMOGLOBIN 10.2 GM/dL (10.7-15.3); LYMPH % 21.8 % (8-40); MCH 29.4 pg (25.7-33.7); MCHC 32.6 g/dl (32.0-36.0); MEAN CELL VOLUME 90.1 fl (80-96); MEAN PLT VOLUME 9.8 fl (7.5-11.1); MONO % 8.9 % (3.8-10.2); NEUT % 66.9 % (42.8-82.8); PLATELET COUNT 123 K/MM3 (134-434); RBC 3.47 M/mm3 (3.60-5.2); RDW 14.6 % (11.6-15.6); WHITE BLOOD COUNT 4.1 K/mm3 (4.0-10.0)
[2017-10-29 13:24] LABS: ACANTHOCYTES 0; ANISOCYTOSIS 0; HELMET CELLS 0; HOWELL-JOLLY BODIES 0; MACROCYTOSIS 0; OVALOCYTE 0; PLATELET ESTIMATE DECREASED; ROULEAU 0; SICKELED CELLS 0; TARGET CELLS 0; TEAR DROP CELLS 0; TOXIC GRANULATION 0
--- NOTE | 2017-10-29 13:39 | PN ---
[facility] Progress Note Note: Patient c/o of sore throat, worsen with swallowing. Vital Signs Temperature 97.8 F 10/29/17 07:07 Pulse Rate 83 10/29/17 07:07 Respiratory Rate 18 10/29/17 07:07 Blood Pressure 103/65 10/29/17 07:07 O2 Sat by Pulse Oximetry (%) Laboratory Last Values WBC 4.1 K/mm3 (4.0-10.0) D 10/29/17 09:10 RBC 3.47 M/mm3 (3.60-5.2) L 10/29/17 09:10 Hgb 10.2 GM/dL (10.7-15.3) L 10/29/17 09:10 Hct 31.3 % (32.4-45.2) L 10/29/17 09:10 MCV 90.1 fl (80-96) 10/29/17 09:10 MCH 29.4 pg (25.7-33.7) 10/29/17 09:10 MCHC 32.6 g/dl (32.0-36.0) 10/29/17 09:10 RDW 14.6 % (11.6-15.6) 10/29/17 09:10 Plt Count 123 K/MM3 (134-434) L 10/29/17 09:10 MPV 9.8 fl (7.5-11.1) 10/29/17 09:10 Neutrophils % 66.9 % (42.8-82.8) 10/29/17 09:10 Lymphocytes % 21.8 % (8-40) 10/29/17 09:10 Monocytes % 8.9 % (3.8-10.2) 10/29/17 09:10 Eosinophils % 1.7 % (0-4.5) 10/29/17 09:10 Basophils % 0.7 % (0-2.0) 10/29/17 09:10 Nucleated RBC % 0 % (0-0) 10/29/17 09:10 Sodium 143 mmol/L (136-145) 10/27/17 09:00 Potassium 4.3 mmol/L (3.5-5.1) 10/27/17 09:00 Chloride 109 mmol/L (98-107) H 10/27/17 09:00 Carbon Dioxide 25 mmol/L (21-32) 10/27/17 09:00 Anion Gap 9 (8-16) 10/27/17 09:00 BUN 34 mg/dL (7-18) H 10/27/17 09:00 Creatinine 1.3 mg/dL (0.55-1.02) H 10/27/17 09:00 Creat Clearance w eGFR 42.37 (>60) 10/27/17 09:00 Random Glucose 123 mg/dL (74-106) H 10/27/17 09:00 Calcium 8.9 mg/dL (8.5-10.1) 10/27/17 09:00 Total Bilirubin 0.1 mg/dL (0.2-1.0) L D 10/27/17 09:00 AST 23 U/L (15-37) 10/27/17 09:00 ALT 26 U/L (12-78) 10/27/17 09:00 Alkaline Phosphatase 78 U/L (45-117) 10/27/17 09:00 Total Protein 8.0 g/dl (6.4-8.2) 10/27/17 09:00 Albumin 2.9 g/dl (3.4-5.0) L 10/27/17 09:00 - sore throat throat culture peridex wash PRN increase fluids continue to monitor
[2017-10-29] MEDS: CHLORHEXIDINE GLUCONATE 0.12% 15ML CUP MM SCH ×2 (14:45→21:23)
[2017-10-29] MEDS: traZODone HCL 50 MG TABLET (FP) PO SCH (21:21)
[2017-10-29] MEDS: hydrOXYzine PAMOATE 50 MG CAPSULE (FP) PO PRN (21:21)
[2017-10-29] MEDS: THIAMINE HCL 100 MG TABLET (FP) PO SCH (21:22)
[2017-10-29] MEDS: MELATONIN 5 MG TABLETS PO SCH (21:22)
[2017-10-30] MEDS: SULFAMETHOXAZOLE/TRIMETHOPRIM 800MG/160MG D.S. TABLET PO SCH (10:18)
[2017-10-30] MEDS: PRENATAL VITAMINS W/ FOLIC ACID TABLET (FP) PO SCH (10:18)
[2017-10-30] MEDS: HYDROCORTISONE 0.5% TOPICAL CREAM 30 GM TUBE TP PRN (10:19)
[2017-10-30] MEDS: ELVITEG/COB/EMTRI/TENOF (GENVOYA) TABLET (NF) PO SCH (10:19)
[2017-10-30] MEDS: CHLORHEXIDINE GLUCONATE 0.12% 15ML CUP MM SCH ×2 (10:19→21:22)
--- NOTE | 2017-10-30 13:55 | PN ---
[facility] Progress Note Note: Vital Signs Temperature 98.2 F 10/30/17 06:41 Pulse Rate 75 10/30/17 06:41 Respiratory Rate 16 10/30/17 06:41 Blood Pressure 92/48 10/30/17 06:41 O2 Sat by Pulse Oximetry (%) 10/30/17 07:00 Throat Culture - Pending Throat Laboratory Results - last 24 hr 10/29/17 09:10 Neutrophils % (Manual) 73.2 Band Neutrophils % 0.0 Lymphocytes % (Manual) 17.5 Monocytes % (Manual) 8 Eosinophils % (Manual) 1.0 Basophils % (Manual) 0.0 Myelocytes % (Man) 0 Promyelocytes % (Man) 0 Blast Cells % (Manual) 0 Metamyelocytes 0 Hypochromia 0 Toxic Granulation 0 Dohle Bodies 0 Platelet Estimate Decreased Polychromasia 0 Poikilocytosis 0 Basophilic Stippling 0 Anisocytosis 0 Microcytosis 0 Macrocytosis 0 Spherocytes 0 Sickle Cells 0 Target Cells 0 Tear Drop Cells 0 Ovalocytes 0 Stomatocytes 0 Helmet Cells 0 [place] Bodies 0 [place] Rings 0 Vincenzo Cells 0 Acanthocytes (Spur) 0 Rouleaux 0 Fragmented RBCs 0 Schistocytes 0 Labs reviewed continue vitamins continue to monitor
[2017-10-30] MEDS: MELATONIN 5 MG TABLETS PO SCH (21:21)
[2017-10-30] MEDS: traZODone HCL 50 MG TABLET (FP) PO SCH (21:21)
[2017-10-30] MEDS: hydrOXYzine PAMOATE 50 MG CAPSULE (FP) PO PRN (21:21)
[2017-10-30] MEDS: THIAMINE HCL 100 MG TABLET (FP) PO SCH (21:22)
[2017-10-30] MEDS: MENTHOL/PHENOL 1 EACH UD MM PRN (21:24)
[2017-10-31] MEDS ORDERED: PT OWN MED DRAWER 7, Y5N ONE (08:33)
[2017-10-31] MEDS: SULFAMETHOXAZOLE/TRIMETHOPRIM 800MG/160MG D.S. TABLET PO SCH (09:59)
[2017-10-31] MEDS: PRENATAL VITAMINS W/ FOLIC ACID TABLET (FP) PO SCH (09:59)
[2017-10-31] MEDS: ELVITEG/COB/EMTRI/TENOF (GENVOYA) TABLET (NF) PO SCH (09:59)
[2017-10-31] MEDS: CHLORHEXIDINE GLUCONATE 0.12% 15ML CUP MM SCH ×2 (09:59→21:24)
[2017-10-31] MEDS: MENTHOL/PHENOL 1 EACH UD MM PRN ×2 (10:00→14:07)
[2017-10-31] MEDS: MAG HYDROX/AL HYDROX/SIMETH 30 ML UNIT-DOSE CUP PO PRN (14:06)
[2017-10-31] MEDS: traZODone HCL 50 MG TABLET (FP) PO SCH (21:23)
[2017-10-31] MEDS: diphenhydrAMINE HCL 25 MG CAPSULE (FP) PO PRN (21:23)
[2017-10-31] MEDS: MELATONIN 5 MG TABLETS PO SCH (21:23)
[2017-10-31] MEDS: THIAMINE HCL 100 MG TABLET (FP) PO SCH (21:23)
[2017-11-01] MEDS: MENTHOL/PHENOL 1 EACH UD MM PRN ×2 (08:35→21:28)
[2017-11-01] MEDS: SULFAMETHOXAZOLE/TRIMETHOPRIM 800MG/160MG D.S. TABLET PO SCH (10:09)
[2017-11-01] MEDS: CHLORHEXIDINE GLUCONATE 0.12% 15ML CUP MM SCH ×2 (10:09→21:27)
[2017-11-01] MEDS: PRENATAL VITAMINS W/ FOLIC ACID TABLET (FP) PO SCH (10:09)
[2017-11-01] MEDS: ELVITEG/COB/EMTRI/TENOF (GENVOYA) TABLET (NF) PO SCH (10:09)
--- NOTE | 2017-11-01 15:21 | PN ---
[facility] Progress Note Note: Vital Signs Temperature 97.9 F 11/01/17 07:12 Pulse Rate 88 11/01/17 07:12 Respiratory Rate 18 11/01/17 07:12 Blood Pressure 95/60 11/01/17 07:12 O2 Sat by Pulse Oximetry (%) Throat culture negative for strep 10/30/17 Patient medically stable, schedule for D/C tomorrow, medications sent to pharmacy. Patient to follow up with PMD upon d/c.
[2017-11-01] MEDS ORDERED: PT OWN MED DRAWER 7, Y5N ONE (20:25)
[2017-11-01] MEDS: THIAMINE HCL 100 MG TABLET (FP) PO SCH (21:24)
[2017-11-01] MEDS: traZODone HCL 50 MG TABLET (FP) PO SCH (21:24)
[2017-11-01] MEDS: MELATONIN 5 MG TABLETS PO SCH (21:25)
[2017-11-01] MEDS: hydrOXYzine PAMOATE 50 MG CAPSULE (FP) PO PRN (21:26)
[2017-11-02 07:23] VITALS: BP 95/58; PULSE 82; TEMP 97
--- NOTE | 2017-11-02 08:24 | PN ---
Psychiatric Progress Note Vital Signs: Vital Signs Period Temp Pulse Resp BP Sys/Bello Pulse Ox Last 24 Hr 97.0 F 82 18-18 95/58 Date of Session: 11/02/17 Chief Complaint:: Discharge visit HPI: Patient addressed Alcohol,Cocaine and Cannabis dependence comorbid with Substance induced mood disorder. ROS: Significant for HIV+,AIDS,Limphoma. Current Medications: Active Medications Generic Name Dose Route Start Last Admin Trade Name Freq PRN Reason Stop Dose Admin Acetaminophen 650 mg 10/19/17 10:51 Tylenol - PO Q4H PRN FEVER Al Hydroxide/Mg Hydroxide 30 ml 10/19/17 10:51 10/31/17 14:06 Mylanta Oral Suspension - PO 30 ml Q6H PRN Administration DYSPEPSIA Chlorhexidine Gluconate 15 ml 10/29/17 13:45 11/01/17 21:27 Peridex - MM 15 ml BID KELY Administration Colloidal Oatmeal 1 applic 10/22/17 12:44 10/22/17 14:34 Aveeno Soap - TP 1 bar DAILY PRN Administration HYGEINE Diphenhydramine HCl 25 mg 10/20/17 22:58 10/31/17 21:23 Benadryl - PO 25 mg Q6H PRN Administration FOR ITCHING Elvitegravir/Cobicis/Emtricit/Tenof 1 tab 10/24/17 10:00 11/01/17 10:09 Genvoya (Non-Formulary) PO 1 tab DAILY KELY Administration Eucalyptus/Menthol/Phenol/Sorbitol 1 each 10/19/17 10:51 11/01/17 21:28 Cepastat Lozenge - MM 1 each Q4H PRN Administration SORE THROAT Guaifenesin 10 ml 10/19/17 10:51 Robitussin Dm - PO Q6H PRN COUGH Hydroxyzine Pamoate 50 mg 10/22/17 15:38 11/01/17 21:26 Vistaril - PO 50 mg Q4H PRN Administration ANXIETY Ibuprofen 400 mg 10/19/17 10:51 10/26/17 21:25 Motrin - PO 400 mg Q6H PRN Administration Pain Level 4-6 Loperamide HCl 4 mg 10/19/17 10:51 10/22/17 10:27 Imodium - PO 4 mg Q6H PRN Administration DIARRHEA Magnesium Citrate 300 ml 10/19/17 10:51 Citroma - PO Q48H PRN CONSTIPATION Magnesium Hydroxide 30 ml 10/19/17 10:51 Milk Of Magnesia - PO DAILY PRN CONSTIPATION Melatonin 5 mg 10/22/17 22:00 11/01/17 21:25 Melatonin PO 5 mg HS KELY Administration Nicotine 14 mg 10/19/17 10:51 Nicoderm Patch - TD DAILY PRN WITHDRAWAL(CONT SUBST) Nicotine Polacrilex 2 mg 10/19/17 10:51 Nicorette Gum - BUC Q2H PRN NICOTINE REPLACEMENT RX Multivit/Folic Acid/Iron 1 tab 10/20/17 10:00 11/01/17 10:09 Vitamins (Sjr) - PO 1 tab DAILY KELY Administration Pseudoephedrine/Triprolidine 1 combo 10/19/17 10:51 Actifed - PO TID PRN NASAL CONGESTION Thiamine HCl 100 mg 10/19/17 22:00 11/01/17 21:24 Vitamin B1 - PO 100 mg HS KELY Administration Trazodone HCl 50 mg 10/24/17 22:00 11/01/17 21:24 Desyrel - PO 50 mg HS KELY Administration Trimethoprim/Sulfamethoxazole 1 each 10/22/17 16:15 11/01/17 10:09 Bactrim Ds - PO 1 each DAILY KELY Administration Current Side Effect: No Lab tests ordered: No Lab tests reviewed: Yes Provider note:: patient completed this program today.She has met her treatment plan and will continue to address her issues on outpatient basis at [facility].patient reorts finding that current medications:Trazodone 50 mg po hs helps to cope with insomnia,depressed mood.Electronic prescription of the above medication has been send to her pharmacy. Supportive therapy provided focusing on relapse prevention.patient identifies areas of dissiculties and coping skills,support she can utilize to maintain recovery. patient is stable for discharge today. Total face to face time:: 30 Mental Status Exam - Mental Status Exam Alert and Oriented to: Time, Place, Person Cognitive Function: Grossly Intact Patient Appearance: Well Groomed Mood: Hopeful Affect: Mood Congruent Patient Behavior: Cooperative Speech Pattern: Clear Voice Loudness: Normal Thought Process: Goal Oriented Thought Disorder: Not Present Hallucinations: Denies Suicidal Ideation: Denies Homicidal Ideation: Denies Insight/Judgement: Fair Sleep: Fair Appetite: Good Muscle strength/Tone: Normal Gait/Station: Normal Psychiatric Treatment Plan - Problem List (1) Cocaine dependence Qualifiers: Substance use status: uncomplicated Qualified Code(s): F14.20 - Cocaine dependence, uncomplicated (2) Nicotine dependence Qualifiers: Nicotine product type: cigarettes Substance use status: in withdrawal Qualified Code(s): F17.213 - Nicotine dependence, cigarettes, with withdrawal
[2017-11-02] MEDS ORDERED: PT OWN MED DRAWER 7, Y5N ONE (08:43)
[2017-11-02] MEDS: SULFAMETHOXAZOLE/TRIMETHOPRIM 800MG/160MG D.S. TABLET PO SCH (09:04)
[2017-11-02] MEDS: PRENATAL VITAMINS W/ FOLIC ACID TABLET (FP) PO SCH (09:04)
[2017-11-02] MEDS: ELVITEG/COB/EMTRI/TENOF (GENVOYA) TABLET (NF) PO SCH (09:04)
[2017-11-02] MEDS: CHLORHEXIDINE GLUCONATE 0.12% 15ML CUP MM SCH (09:05)
== END 2017-11-02 09:37 | disposition home or self-care (01) | DRG 772 ==
LOC: YASAS 11:19 → Y3E 11:20
PROVIDERS: ADMIT Psychiatry & Neurology Psychiatry; ATTEND Psychiatry & Neurology Psychiatry
PROC: HZ42ZZZ Group Counseling for Substance Abuse Treatment, Cognitive-Behavioral (ICD-10-PCS; principal; 2017-10-19)
DX: F10.230 Alcohol dependence with withdrawal, uncomplicated (principal); F14.10 Cocaine abuse, uncomplicated; F17.210 Nicotine dependence, cigarettes, uncomplicated; F10.24 Alcohol dependence with alcohol-induced mood disorder; F19.24 Other psychoactive substance dependence with psychoactive substance-induced mood disorder; D64.9 Anemia, unspecified; I83.11 Varicose veins of right lower extremity with inflammation; R07.0 Pain in throat; B37.3 Candidiasis of vulva and vagina; Z21 Asymptomatic human immunodeficiency virus [HIV] infection status; Z85.72 Personal history of non-Hodgkin lymphomas; Z91.5 Personal history of self-harm
CPT/HCPCS: 36415; 80053; 85025; 87070